=== PATIENT | male | born 1940 | race Caucasian/White ===

== ENCOUNTER 2017-12-26 00:27 | Inpatient (IN) ==
--- NOTE | 2017-12-26 03:28 | Internal Med History&Physical ---
Date of Encounter: 12/26/17 Time of Encounter: 03:24 Assessment and Plan (1) Femoral neck fracture Current visit: No Status: Acute Apparently the story was that he fell on ice NPO , IVF, IV fentanyl for pain ortho eval in the morning recheck labs, coag - xarelto effect may delay surgery - pending ortho recs Qualifiers: Encounter type: initial encounter Fracture type: closed Laterality: right Qualified Code(s): S72.001A - Fracture of unspecified part of neck of right femur, initial encounter for closed fracture (2) Venous thrombosis Current visit: Yes Status: Acute uncertain hx. on chronic anticoagulation . Took xarelto noon yesterday Will need to determine extent and dx to include whether he has clinically significant hypercoagulable disorder vs. regular VTE to further decide on per- operative prophylactic dosing vs. therapeutic heparinization. Will need to ask in the morning SCD for now (3) Cognitive and neurobehavioral dysfunction Current visit: Yes Status: Acute uncertain whether this is his baseline Possible dementia based on his non-specific poor recall and avoidance of questioning However, due to fall on xarelto, will send for non-contrast CT head to r/o any head bleed Internal Medicine - H&P: HPI Chief complaint: Fall History of present illness: Mr. Martin is a 77 year old male who presents with a fall and acute right hip fracture. He is a very poor historian and i wonder whether he has undiagnosed dementia. His is not available to assist in his story. Apparently, he reportedly fell on ice 2 days ago and had worsening pain along right hip associated with worsening ambulatory capacity. Right hip pain improved with pain medications given. Worse with movement. He presented to [facility] ED where work up confirmed right subcapital hip fracture. The case with discussed with Dr Herrera of ortho who has accepted him In terms of medical hx, he denies hx of heart disease but noted HTN. He admits to taking xarelto for hx of blood clots in his legs - he was unable to provide me with further details - it appeared that he might have been on coumadin prior but was later switched to xarelto for failure ??? I suspect he his some form of cognitive impairment based on my interactions with him but no collateral was present to confirm that. EKG personally reviewed with rate 94, RBBB, NSR, no prior to compare against XR/XR femur RT IMPRESSION: Acute mildly impacted right subcapital hip fracture. XR/XR hip complete RT IMPRESSION: Acute mildly impacted right subcapital hip fracture. XR/XR chest 1V portable IMPRESSION: Left basilar opacity favors either atelectasis or scarring. Past Med Surg Social Fam HX - Past Medical History Medical history: cancer, DVT, dementia, hypertension Psychiatric history: no psych history - Past Surgical History Surgical History: cancer surgery - Social History Smoking Status: Never smoker Smokeless Tobacco Status: No Alcohol use: none Drug use: none Internal Medicine - H&P: Meds Rivaroxaban [Xarelto] 20 mg PO DAILY 12/25/17 [History] 3 Allergy/AdvReac Type Severity Reaction Status Date / Time Penicillins Allergy Hives Verified 12/25/17 23:11 All Systems PM: A 10-system review of systems was performed and is negative for pertinent findings except as documented above in the HPI. Review of systems: ROS 14 point review of systems reviewed as best as possible given presentation. Pertinent positive or negative as per HPI or otherwise reviewed as negative - Constitutional Vitals: Temp Pulse Resp BP Pulse Ox 98.4 F 93 16 137/86 95 12/26/17 02:43 12/26/17 02:43 12/26/17 02:43 12/26/17 02:43 12/26/17 02:43 Exam: General - Alert but with cognitive impairment noted Psych - Appropriate affect/speech. No agitation Eyes - CAMILLE. Eye lids intact. No scleral icterus Neuro - No gross peripheral or central neuro deficits with intact CN 2-12 exam Heart - Sinus. RRR. S1 and S2 present. No added HS/murmurs appreciated. No elevated JVD appreciated. Lung - Adequate air entry b/l, No crackles/wheezes appreciated GI - Soft, non-tender. No hepatosplenomegaly/ascites. BS+ - No CVA/suprapubic tenderness or palpable bladder distension Skin - Intact. No rash/petechiae/ecchymosis. Warm extremities MSK - Right hip pain. No significant hematoma noted.
[2017-12-26] MEDS ORDERED: Naloxone 0.4 MG/ML INJ IVP PRN (03:35)
[2017-12-26] MEDS ORDERED: *HR* FentaNYL (PF) 100 MCG/2 ML VIAL IVP PRN (03:38)
[2017-12-26] MEDS: Ringers Solution, Lactated 1,000 ML IVC SCH ×2 (04:29→14:47)
[2017-12-26 05:55] LABS: Hematocrit 44.3 % (37.5-50.1); Hemoglobin 14.8 g/dL (12.9-16.9); Immature Granulocytes % 0.4 % (0-4); Lymphocytes % 23.4 %; Mean Corpuscular HGB Conc 33.4 g/dL (31.6-35.5); Mean Corpuscular Hemoglobin 31.4 pg (28.0-33.3); Mean Corpuscular Volume 93.9 fL (83.0-100.0); Mean Platelet Volume 9.5 fL (9.4-12.4); Platelet Count 152 K/mcL (140-400); Red Blood Count 4.72 M/mcL (4.19-5.50); Red Cell Distribution Width 13.2 % (11.5-14.5); Segmented Neutrophils % 62.2 %
[2017-12-26 05:56] LABS: Basophils % 0.3 %; Eosinophils # 0.3 K/mcL (0.0-0.6); Eosinophils % 2.7 %; Lymphocytes # 2.4 K/mcL (0.6-4.6); Monocytes # 1.1 K/mcL (0.0-1.3); Neutrophils # 6.3 K/mcL (1.6-8.9)
[2017-12-26 06:00] LABS: INR 1.8; Prothrombin Time 19.2 Seconds (9.4-12.1)
[2017-12-26 06:02] LABS: Activated Partial Thrombo Time 38.5 Seconds (26.0-36.0)
[2017-12-26 06:13] LABS: Alanine Aminotransferase 28 Units/L (7-52); Albumin 3.8 g/dL (3.5-5.7); Albumin/Globulin Ratio 1.4 (1.1-2.2); Alkaline Phosphatase 97 Units/L (34-104); Aspartate Amino Transferase 26 Units/L (13-39); BUN/Creatinine Ratio 15 (6-26); Bilirubin,Total 1.1 mg/dL (0.3-1.0); Blood Urea Nitrogen 12 mg/dL (8-23); Calcium 8.8 mg/dL (8.6-10.3); Carbon Dioxide 23 mEq/L (23-29); Chloride 107 mEq/L (98-107); Globulin 2.8 g/dL (2.4-3.5); Glucose 145 mg/dL (70-105); Osmolality,Calculated 288 (280-300); Potassium 3.8 mEq/L (3.5-5.1); Sodium 138 mEq/L (136-145); Total Protein 6.6 g/dL (6.4-8.9); eGFR For African Americans > 60 (> 60); eGFR For Non-African Americans > 60 (> 60)
--- NOTE | 2017-12-26 15:04 | Event Note ---
Date of Encounter: 12/26/17 Time of Encounter: 09:45 Patient lying in bed. Appears comfortable. Complains of pain in right hip region. Reviewed labs and previous records. INR is 1.8. Improved. Patient is medically stable for surgery at this time with intermediate risk for complications. He is on Xarelto for prior DVT. May resume after surgery.
--- NOTE | 2017-12-26 15:04 | Orthopedic Consult Note ---
Date of Encounter: 12/26/17 Time of Encounter: 07:00 Assessment and Plan (1) Femoral neck fracture Current Visit: No Status: Acute The diagnosis and treatment plan were discussed with the patient and family. Due to the fact that he has a nondisplaced femoral neck fracture we did recommend surgical management with a percutaneous pinning of the right hip. Medical management clearance will be today. He is also relative so we will hold that today and plan for surgery tomorrow in the a.m. My partner Dr. Dill will be performing this tomorrow morning and will discuss with the patient's family. Qualifiers: Encounter type: initial encounter Fracture type: closed Laterality: right Qualified Code(s): S72.001A - Fracture of unspecified part of neck of right femur, initial encounter for closed fracture History of Present Illness HPI: Mr. Martin is a 77 year old male who had a fall onto the right hip last night. History of present illness is limited by the patient's mental status. Per the chart he complained of right hip pain when he is brought to the emergency department. X-rays revealed a nondisplaced right femoral neck fracture. He was then transferred for further definitive management. No known cardiac events or passing out or blacking out prior to the fall. Past Med Surg Social Fam HX - Past Medical History Medical history: cancer, DVT, dementia, hypertension Psychiatric history: no psych history - Past Surgical History Surgical History: cancer surgery - Social History Smoking Status: Never smoker Smokeless Tobacco Status: No Alcohol use: none Drug use: none Medications and Allergies Rivaroxaban [Xarelto] 20 mg PO DAILY 12/25/17 [History] 3 Allergy/AdvReac Type Severity Reaction Status Date / Time Penicillins Allergy Hives Verified 12/25/17 23:11 All Systems Reviewed: A 10-system review of systems was performed and is negative for pertinent findings except as documented above in the HPI. Physical Exam - Constitutional Vitals: Temp Pulse Resp BP Pulse Ox 98.0 F 57 17 122/70 97 12/26/17 11:38 12/26/17 11:38 12/26/17 11:38 12/26/17 11:38 12/26/17 11:38 General appearance IM: A&O X 1 Exam: Consult Exam: Constitutional -Vitals reviewed -The patient is well developed and well nourished. Psychiatric -Underlying dementia. Respiratory: -Respiratory effort normal Abdomen: -Soft abdomen -Non tender -Non distended: Left upper extremity: -No deformities. The overlying skin is intact. No obvious signs of acute trauma. -No tenderness to palpation throughout. -No significant pain with passive motion of the shoulder, elbow, wrist, and fingers within the limits of the bed. -Able to make an "OK" sign, cross the index and long fingers, and extend the thumb. -Sensation grossly intact to light touch throughout the median, radial, and ulnar distributions. -Radial pulse is present; Fingers have good capillary refill. Right upper extremity: -No deformities. The overlying skin is intact. No obvious signs of acute trauma. -No tenderness to palpation throughout. -No significant pain with passive motion of the shoulder, elbow, wrist, and fingers within the limits of the bed. -Able to make an "OK" sign, cross the index and long fingers, and extend the thumb. -Sensation grossly intact to light touch throughout the median, radial, and ulnar distributions. -Radial pulse is present; Fingers have good capillary refill. Left lower extremity: -No deformities. The overlying skin is intact. No obvious signs of acute trauma. -No tenderness to palpation throughout. -No pain with passive motion of the hip, knee, ankle, and toes within the limits of the bed. -No pain with axial loading of the thigh. -Able to dorsiflex and plantarflex the ankle and toes. -Sensation is grossly intact to light touch throughout the sural, saphenous, superficial peroneal, and deep peroneal distributions. -Toes have good capillary refill. Right lower extremity: +Log roll/IR +pain with axial loading -Able to dorsiflex and plantarflex the ankle and toes. -Sensation is grossly intact to light touch throughout the sural, saphenous, superficial peroneal, and deep peroneal distributions. -Toes have good capillary refill. Results - Labs Result Diagrams: 12/26/17 05:38 12/26/17 05:38 Labs: Abnormal lab results PT 19.2 Seconds (9.4-12.1) H 12/26/17 05:38 APTT 38.5 Seconds (26.0-36.0) H 12/26/17 05:38 Glucose 145 mg/dL (70-105) H 12/26/17 05:38 Total Bilirubin 1.1 mg/dL (0.3-1.0) H 12/26/17 05:38 H & H 12/26/17 Range/Units 05:38 Hgb 14.8 (12.9-16.9) g/dL Hct 44.3 (37.5-50.1) % All other labs normal. - Diagnostic results Hip x-ray: report reviewed, image reviewed (non displaced R femoral neck fracture) Consult Discharge Plan - Plan Referrals: Ellie Bolivar, [employer] [Primary Care Provider] -
--- NOTE | 2017-12-26 17:05 | Orthopedics Progress Note ---
Date of Encounter: 12/26/17 Time of Encounter: 17:03 Subjective Interval history: I reviewed the case with my partner Dr. Herrera. I have seen and evaluated the patient. He is a 77-year-old male who was transferred to our facility after a fall that resulted in a right transcervical femoral neck fracture. He initially refused going to the emergency department and was able to ambulate with his 's walker. The patient is ordinarily an unassisted walker. The patient's pain worsened throughout the day and the following morning he was brought to the emergency department and transferred here for definitive management after the fracture was identified. The patient complains of only mild pain localized to the right hip and groin as of now. He denies any other injuries. On exam there is no deformity. Mild tenderness in the groin and mild pain with logroll of the right hip. He can dorsiflex and plantarflex the bilateral ankles and toes. Feet are grossly sensate and well- perfused. X-ray shows a nondisplaced transcervical femoral neck fracture. I did discuss treatment options and my recommendation was for percutaneous screw stabilization to reduce the risk of displacement. The risks discussed included but were not limited to stiffness, bleeding, infection, blood clots, damage to neurovascular structures, tendons, ligaments, and bone. Also discussed was the risk of continued symptoms and possible need for further procedures. I did discuss the anesthesia risks including stroke, heart attack, and . I did discuss the reasonable, foreseeable postoperative course with the patient as well as his . They did wish to proceed and consent will be obtained. Objective Vital signs: Vital Signs Temp Pulse Resp BP Pulse Ox 12/26/17 16:16 98.2 F 73 16 131/81 94 12/26/17 11:38 98.0 F 57 17 122/70 97 12/26/17 07:47 97.2 F L 82 16 126/74 95 12/26/17 02:43 98.4 F 93 16 137/86 95 Intake and Output 12/26/17 12/26/17 12/26/17 07:59 15:59 23:59 Intake Total 1000 / 1000 Output Total 400 / 400 500 / 500 Balance -400 / -400 500 / 500 Intake: IV Fluids 1000 / 1000 Lactated Ringers 1,000 ML @ 100 1000 / 1000 mls/hr IVC .Q10H CHYNA Rx#: [id number] Output: Urine 400 / 400 500 / 500 Other: Meal NPO Weight 75.3 kg Patient Weight 12/26/17 23:59 Weight 75.3 kg - Labs CBC & BMP: 12/26/17 05:38 12/26/17 05:38 Labs: Abnormal lab results PT 19.2 Seconds (9.4-12.1) H 12/26/17 05:38 APTT 38.5 Seconds (26.0-36.0) H 12/26/17 05:38 Glucose 145 mg/dL (70-105) H 12/26/17 05:38 Total Bilirubin 1.1 mg/dL (0.3-1.0) H 12/26/17 05:38 - VTE Documentation of Mechanical Device: Intermittent pneumatic compression device Consult Discharge Plan - Plan Referrals: Ellie Bolivar, [employer] [Primary Care Provider] -
[2017-12-26] MEDS: Acetaminophen 325 MG TABLET PO PRN (21:32)
--- NOTE | 2017-12-27 07:30 | Anesthesia Evaluation PreOp ---
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) Other Medical History: Denies Any Significant HX Anesthesia History: No Prior Anesthetic Complications Alcohol Use: none Drug use: none Medications and Allergies Rivaroxaban [Xarelto] 20 mg PO DAILY 12/25/17 [History] 3 Allergy/AdvReac Type Severity Reaction Status Date / Time Penicillins Allergy Hives Verified 12/25/17 23:11 - Meds/Allergy Pre-op Review Medications Reviewed: Yes Allergies Reviewed: Yes Beta Blockers on Current Med List: No Anesthesia Results - Labs 12/26/17 05:38 12/26/17 05:38 - Imaging EKG: report reviewed (SR Rt BBB) Anesthesia Exam Vital Signs/O2 Sat/Glucose, Most Current Temp Pulse Resp BP Pulse Ox 12/27/17 07:10 97.6 F 66 14 112/71 94 12/27/17 04:18 97.4 F L 69 16 148/75 95 Height: 5'6 Weight: 166 lbs NPO (# of Hours): MN Pain Scale: 0 - HEENT Pupil (Motor): Pupils equal, EOMI Mallampati: III Oral Opening: Greater than 3 - BINDING BENCH WORKER LOC: Unable to assess BINDING BENCH WORKER Motor: Normal RUE, Normal LUE, Normal RLE, Normal LLE, Normal Face BINDING BENCH WORKER Sensory: Normal: RUE, LUE, RLE, LLE, Face - Cardiac Rhythm: Regular Murmur: None JVD: No Carotid Bruit: No - Pulmonary Breath Sounds: bilateral Clear Respiratory Effort: Symmetrical Anesthesia Assess/Plan ASA Score: 3 (Dementia HTN) Modified [place] Scale for Level of Consciousness: Cooperative, oriented, and tranquil Anesthetic Plan: General Monitoring Plan: Standard Monitors Recovery Plan: PACU (Discussed GA, agrees to proceed)
--- NOTE | 2017-12-27 07:42 | Anesthesia Evaluation PreOp ---
Date of Encounter: 12/27/17 Time of Encounter: 07:55 - Past History Planned Operation: Rt H Alcohol Use: none Drug use: none Medications and Allergies Rivaroxaban [Xarelto] 20 mg PO DAILY 12/25/17 [History] 3 Allergy/AdvReac Type Severity Reaction Status Date / Time Penicillins Allergy Hives Verified 12/25/17 23:11 Anesthesia Results - Labs 12/26/17 05:38 12/26/17 05:38
[2017-12-27] MEDS ORDERED: Famotidine 20 MG/2 ML VIAL ONE (09:52)
[2017-12-27] MEDS ORDERED: Acetaminophen IV 1,000 MG/100 ML INFUS..BTL ONE (09:52)
[2017-12-27] MEDS ORDERED: *HR* FentaNYL (PF) 100 MCG/2 ML VIAL ONE ×2 (09:56→10:31)
[2017-12-27] MEDS ORDERED: *HR* Propofol 200 MG/20 ML VIAL IVP ONE (09:56)
[2017-12-27] MEDS ORDERED: *HR* Succinylcholine 200 MG/10 ML VIAL IVP ONE (09:57)
[2017-12-27] MEDS ORDERED: Lidocaine -MPF 2% 2 ML VIAL ONE (09:57)
[2017-12-27] MEDS ORDERED: Lidocaine -MPF 4% 5 ML AMPUL ONE (09:57)
[2017-12-27] MEDS ORDERED: Ondansetron 4 MG/2 ML VIAL ONE (09:57)
[2017-12-27] MEDS ORDERED: Clindamycin 900 MG/50 ML 900 MG/50 ML IV.SOLN IVPB ONE ×2 (10:05→10:36)
[2017-12-27] MEDS ORDERED: EPHEDrine 50 MG/ML VIAL ONE (10:28)
[2017-12-27] MEDS ORDERED: Ketorolac 30 MG/ML VIAL ONE (10:46)
[2017-12-27] MEDS ORDERED: Dexamethasone 4 MG/ML VIAL ONE (10:46)
--- NOTE | 2017-12-27 11:29 | Orthopedic Operative Note ---
Date of procedure: 12/27/17 Procedure: OPERATIVE REPORT DATE OF PROCEDURE: 12/27/2017 SURGEON: Chandler Leon MD LIGHTING DIRECTOR(S): There were no assistants PREOPERATIVE DIAGNOSIS: Right transcervical femoral neck fracture POSTOPERATIVE DIAGNOSIS: Same PROCEDURE: Percutaneous screw fixation of the right hip ANESTHESIA: General anesthesia PREOPERATIVE ANTIBIOTIC: 900 milligrams of clindamycin ESTIMATED BLOOD LOSS: 20 milliliters IMPLANTS: Fadia 6.5 mm partially threaded short thread cancellus screws LOCAL INJECTION: None PREOPERATIVE NOTE AND INDICATIONS: This patient is a 77-year-old male who sustained an injury leading to a nondisplaced right femoral neck fracture. The recommendation was for percutaneous pin fixation to stabilize the hip and reduce the risk of displacement. The surgical plan was discussed with the patient. The risks, benefits, alternatives, and potential complications of this procedure were discussed with the patient including injury to veins, arteries, nerves, tendons, ligaments, and bone. Also discussed were the risks of infection, bleeding, pain, blood clots, the possible need for a blood transfusion, the possible need for further procedures, heart attack, stroke, and . Additional risks include malunion , nonunion, avascular necrosis, and the need for prosthetic replacement. All of this was explained in simple terms, and the patient verbalized understanding and wished to proceed. Consent was given to proceed with surgery. PROCEDURE: The patient was seen in the preoperative holding area where the identify and the consent were confirmed. The right hip was marked. Final questions were answered. The patient was brought back to the operating room and placed supine on the operating room table. A huddle was performed with the patient and all vital surgical team members confirming patient identity, the correct procedure, and the correct operative site. General anesthesia was administered. Right lower extremity was placed in the traction boot without traction. The left lower extremity is flexed and abducted out of the way. The right lower extremity was prepped and draped in the usual sterile fashion. A surgical time out was performed immediately preceding the incision with all personnel in the operating room to confirm patient identity, the correct operative site and extremity, correct radiographic studies, availability of appropriate surgical equipment, and agreement on the planned procedure. Small longitudinal incision was made over the lateral thigh and dissection proceeded through the subcutaneous tissue. An incision was made through the fascia. 3 K wires were placed on the bone and driven into the femoral head. X- rays confirmed good position. There are measured, drilled, and the appropriately measured partially threaded cancellous screw was placed into the proximal femur, all 3 with excellent purchase. X-rays confirmed good position. The wound is copiously irrigated and the fascia was closed with 0 Vicryl stitches. The skin was closed with 3-0 Vicryl and a zipline device. A sterile dressing was applied. The instrument, sponge, and needle counts were correct after wound closure. POST OPERATIVE PLAN: Weight Bearing: Weightbearing as tolerated to the right lower extremity. DVT Prophylaxis: Home Xarelto Activity: As tolerated with the assistance of therapy Wound Care: . The dressing clean, dry, and intact Pain Control: Per the hospitalist Perioperative antibiotic prophylaxis: 2 doses of clindamycin Social work for discharge planning Follow Up: 2 weeks Was there an print shop assistant present: No Estimated blood loss (cc): 20
--- NOTE | 2017-12-27 12:38 | Anesthesia Evaluation Post Op ---
Date of Encounter: 12/27/17 Time of Encounter: 11:40 - Vital Signs Vital Signs: Vital Signs/O2 Sat/Glucose, Most Current Temp Pulse Resp BP Pulse Ox 12/27/17 11:51 97.1 F L 90 14 132/74 100 12/27/17 11:43 97.6 F 87 14 126/74 99 12/27/17 11:33 84 14 132/78 99 12/27/17 11:23 83 12 119/72 93 12/27/17 11:13 97.1 F L 84 12 117/69 96 - Lungs Lungs: Clear Ascult./Percussion - Airway Airway: Non-obstructed - Cardiovascular Regular Rate - Mental Status Mental Status: Alert & Oriented, Answers Appropriately - Pain Pain Scale: 0 - Nausea Vomiting Nausea Vomiting: Not Present - Hydration Hydration: NPO - Discharge PostOp Status: Transfer Patient to floor
--- NOTE | 2017-12-27 17:02 | Internal Med Progress Note ---
Date of Encounter: 12/27/17 Time of Encounter: 09:15 - Assessment and plan (1) Fracture of femoral neck, right, closed Current Visit: Yes Status: Acute Assessment and plan: Planned surgery later today. We will begin PT OT after that. Orthopedics managing. Qualifiers: Encounter type: initial encounter Qualified Code(s): S72.001A - Fracture of unspecified part of neck of right femur, initial encounter for closed fracture (2) Dementia Current Visit: Yes Status: Suspected Assessment and plan: Patient does appear to have underlying dementia. Has trouble with recall and is intermittently disoriented. He remains at risk of delirium and agitation. Will treat symptomatically. Qualifiers: Dementia type: unspecified type Dementia behavioral disturbance: with behavioral disturbance Qualified Code(s): F03.91 - Unspecified dementia with behavioral disturbance (3) Venous thrombosis Current Visit: Yes Status: Acute Assessment and plan: Resume Xarelto after surgery. - Subjective Interval history: Patient is awake and alert. He has been disoriented intermittently and did pull out his peripheral venous catheters yesterday. He now has a sitter at bedside. Surgery scheduled for later today. Pain in his right hip present but controlled. - Constitutional Vitals: Temp Pulse Resp BP Pulse Ox 98.5 F 81 16 133/72 96 12/27/17 15:29 12/27/17 15:29 12/27/17 15:29 12/27/17 15:29 12/27/17 15:29 General appearance: Present: cooperative, A&O X 2, mild distress, answers questions appropriately - Respiratory Respiratory exam: Present: CTAB. Absent: accessory muscle use, rales, rhonchi, wheezes - Cardiovascular Cardiovascular exam: Present: RRR, +S1, +S2. Absent: diastolic murmur, gallop, rubs, systolic murmur - GI/Abdominal GI/Abdominal exam: Present: normal bowel sounds, soft, no peritoneal signs. Absent: distended, tenderness - Extremities Exam Extremities exam: Present: tenderness (Right hip), warm, radial pulses palpable and symmetrical. Absent: calf tenderness, cyanotic, pedal edema - Neurological Exam Neurological exam: Present: alert, CN II-XII intact, no focal deficits. Absent : facial droop, speech deficit - Skin Skin exam: Present: dry, intact Internal Medicine: Result - Labs CBC & Chem 7: 12/26/17 05:38 12/26/17 05:38 - ABG Interpretation ABG results: PT/INR, D-dimer PT 19.2 Seconds (9.4-12.1) H 12/26/17 05:38 - Impressions Impressions Fluoroscopy 12/27/17 00:00 IMPRESSION: Intraprocedural fluoroscopic spot images as above. See separate procedure report for more information. D/ / 12/27/2017 12:38:45 Molly De Santiago MD / bal Interpreting Provider: Molly De Santiago MD Hip X-Ray 12/27/17 00:00 IMPRESSION: Intraprocedural fluoroscopic spot images as above. See separate procedure report for more information. D/ / 12/27/2017 12:38:45 Molly De Santiago MD / bal Interpreting Provider: Molly De Santiago MD Hip X-Ray 12/27/17 08:39 IMPRESSION: Closed slightly impacted nondisplaced right femoral neck fracture. D/ / 12/27/2017 10:59:58 Matthew Oakes MD / иван Interpreting Provider: Matthew Oakes MD - VTE Documentation of Mechanical Device: Intermittent pneumatic compression device Consult Discharge Plan - Plan Referrals: Ellie Bolivar, [employer] [Primary Care Provider] -
[2017-12-27] MEDS: *HR* Rivaroxaban 10 MG TABLET PO SCH (17:33)
[2017-12-27] MEDS: Clindamycin 900 MG/50 ML 900 MG/50 ML IV.SOLN IVPB SCH (17:33)
[2017-12-28] MEDS: Clindamycin 900 MG/50 ML 900 MG/50 ML IV.SOLN IVPB SCH (01:56)
[2017-12-28 04:25] LABS: Hematocrit 39.7 % (37.5-50.1); Hemoglobin 13.7 g/dL (12.9-16.9)
[2017-12-28 05:09] LABS: BUN/Creatinine Ratio 21 (6-26); Blood Urea Nitrogen 18 mg/dL (8-23); Calcium 8.9 mg/dL (8.6-10.3); Carbon Dioxide 23 mEq/L (23-29); Chloride 107 mEq/L (98-107); Glucose 116 mg/dL (70-105); Osmolality,Calculated 293 (280-300); Potassium 3.8 mEq/L (3.5-5.1); Sodium 140 mEq/L (136-145); eGFR For African Americans > 60 (> 60); eGFR For Non-African Americans > 60 (> 60)
--- NOTE | 2017-12-28 08:46 | Orthopedics Progress Note ---
Date of Encounter: 12/28/17 Time of Encounter: 08:43 Subjective Interval history: S: Resting in bed comfortably Pain well-controlled to the right hip Feels better than preoperatively O: Afebrile and vital signs are stable Right hip dressing is clean, dry, and intact I can gently passively range the right hip without significant pain He can dorsiflex and plantarflex the ankle and toes The foot is sensate and well-perfused A: Post percutaneous pinning of the right hip, doing very well P: Pal out today Weightbearing as tolerated on the bilateral lower extremities Therapy Xarelto for DVT prophylaxis Objective Vital signs: Vital Signs Temp Pulse Resp BP Pulse Ox 12/28/17 08:30 96 12/28/17 06:26 97.6 F 71 16 123/66 96 12/28/17 04:06 98.1 F 78 17 129/77 95 12/27/17 23:50 97.9 F 82 19 101/61 92 12/27/17 18:20 97.8 F 96 18 144/79 96 12/27/17 15:29 98.5 F 81 16 133/72 96 12/27/17 14:34 79 15 125/71 96 12/27/17 14:00 98.7 F 80 15 113/68 96 12/27/17 13:29 98.2 F 79 15 125/71 96 12/27/17 12:30 98.3 F 73 15 121/77 98 12/27/17 11:51 97.1 F L 90 14 132/74 100 12/27/17 11:43 97.6 F 87 14 126/74 99 12/27/17 11:33 84 14 132/78 99 12/27/17 11:23 83 12 119/72 93 12/27/17 11:13 97.1 F L 84 12 117/69 96 Intake and Output 12/27/17 12/28/17 12/28/17 23:59 07:59 15:59 Intake Total 50 / 50 600 / 600 Output Total 1475 / 1475 Balance -1425 / -1425 600 / 600 Intake: IV Fluids 50 / 50 Cleocin Premix 900 MG/50 ML 900 50 / 50 mg In 50 ml @ 50 mls/hr IVPB Q8H [facility] Rx#:[id number] Oral 600 / 600 Output: Urine 1475 / 1475 Other: # Voids 1 - Labs CBC & BMP: 12/28/17 03:17 12/28/17 03:17 Labs: Abnormal lab results PT 19.2 Seconds (9.4-12.1) H 12/26/17 05:38 APTT 38.5 Seconds (26.0-36.0) H 12/26/17 05:38 Glucose 116 mg/dL (70-105) H 12/28/17 03:17 POC Glucose 160 (58-89) H 12/27/17 16:42 Total Bilirubin 1.1 mg/dL (0.3-1.0) H 12/26/17 05:38 - VTE Documentation of Mechanical Device: Intermittent pneumatic compression device Consult Discharge Plan - Plan Additional Instructions: [facility] DISCHARGE INSTRUCTIONS Dr. Leon PROCEDURE PERFORMED Reduction and fixation of right hip. Incision care -Keep the dressing clean, dry, and intact for 2 weeks -Avoid soaking wound in water (no hot tubs, bathtubs, swimming pools). -May shower after 2 weeks from surgery date. Carefully wash incision with soap and water. Gently pat it dry. Don't rub the incision, or apply creams or lotions. Sit on a shower stool when showering to keep from falling. Weight bearing status -Weightbearing as tolerated to the bilateral lower extremities. Medications -Pain medication per the discharging medical doctor -Resume home dose of Xarelto Other -Knee high KETAN hose 23 hours per day -Consult physical and occupational therapy for mobilization. -Up to chair with assistance at least twice per day. -Follow up with your primary care physician to discuss testing for bone mineral density. Follow-up with Dr. Leon at the office 2 weeks from the surgery date for a post operative evaluation. Call the office at [phone] to schedule appointment. Referrals: Ellie Bolivar, MEDICAL BILLING ASSISTANT [Primary Care Provider] -
[2017-12-28] MEDS: Acetaminophen 325 MG TABLET PO PRN ×2 (12:45→18:49)
--- NOTE | 2017-12-28 14:33 | Internal Med Progress Note ---
Date of Encounter: 12/28/17 Time of Encounter: 09:00 - Assessment and plan (1) Fracture of femoral neck, right, closed Current Visit: Yes Status: Acute Assessment and plan: Status post percutaneous screw fixation of the right hip. Continue physical therapy. Recommended increased placement to inpatient rehabilitation. We will consult licensed clinical social worker to make necessary arrangements. Continue supportive care and pain control. Qualifiers: Encounter type: initial encounter Qualified Code(s): S72.001A - Fracture of unspecified part of neck of right femur, initial encounter for closed fracture (2) Dementia Current Visit: Yes Status: Suspected Assessment and plan: No new episodes of delirium. Minimize environmental stimuli. Follow up outpatient. Qualifiers: Dementia type: unspecified type Dementia behavioral disturbance: with behavioral disturbance Qualified Code(s): F03.91 - Unspecified dementia with behavioral disturbance (3) Venous thrombosis Current Visit: Yes Status: Acute Assessment and plan: Continue anticoagulation with Xarelto - Subjective Interval history: Patient is doing well. Working with physical therapy at this time. Underwent surgery yesterday with no complications. Patient is well controlled. - Constitutional Vitals: Temp Pulse Resp BP Pulse Ox 97.6 F 71 16 123/66 96 12/28/17 06:26 12/28/17 06:26 12/28/17 06:26 12/28/17 06:26 12/28/17 12:58 General appearance: Present: cooperative, A&O X 2, mild distress, answers questions appropriately - Respiratory Respiratory exam: Present: CTAB. Absent: accessory muscle use, rales, rhonchi, wheezes - Cardiovascular Cardiovascular exam: Present: RRR, +S1, +S2. Absent: diastolic murmur, gallop, rubs, systolic murmur - Extremities Exam Extremities exam: Present: warm, radial pulses palpable and symmetrical. Absent : calf tenderness, cyanotic, pedal edema - Neurological Exam Neurological exam: Present: CN II-XII intact, oriented X3, no focal deficits. Absent: facial droop, speech deficit Internal Medicine: Result - Labs CBC & Chem 7: 12/28/17 03:17 12/28/17 03:17 Labs: Short CBC 12/28/17 Range/Units 03:17 Hgb 13.7 (12.9-16.9) g/dL Hct 39.7 (37.5-50.1) % BMP 12/28/17 03:17 Sodium 140 Potassium 3.8 Chloride 107 Carbon Dioxide 23 BUN 18 Creatinine 0.87 Glucose 116 H Calcium 8.9 - ABG Interpretation ABG results: PT/INR, D-dimer PT 19.2 Seconds (9.4-12.1) H 12/26/17 05:38 - VTE Documentation of Mechanical Device: Intermittent pneumatic compression device Consult Discharge Plan - Plan Additional Instructions: LONG TERM DISCHARGE INSTRUCTIONS Dr. Leon PROCEDURE PERFORMED Reduction and fixation of right hip. Incision care -Keep the dressing clean, dry, and intact for 2 weeks -Avoid soaking wound in water (no hot tubs, bathtubs, swimming pools). -May shower after 2 weeks from surgery date. Carefully wash incision with soap and water. Gently pat it dry. Don't rub the incision, or apply creams or lotions. Sit on a shower stool when showering to keep from falling. Weight bearing status -Weightbearing as tolerated to the bilateral lower extremities. Medications -Pain medication per the discharging medical doctor -Resume home dose of Xarelto Other -Knee high KETAN hose 23 hours per day -Consult physical and occupational therapy for mobilization. -Up to chair with assistance at least twice per day. -Follow up with your primary care physician to discuss testing for bone mineral density. Follow-up with Dr. Leon at the office 2 weeks from the surgery date for a post operative evaluation. Call the office at [phone] to schedule appointment. Referrals: Ellie Bolivar LABEL PRINTING MACHINIST [Primary Care Provider] -
[2017-12-28] MEDS: *HR* Rivaroxaban 10 MG TABLET PO SCH (15:28)
[2017-12-29 07:37] LABS: Hemoglobin 14.8 g/dL (12.9-16.9)
--- NOTE | 2017-12-29 08:21 | Orthopedics Progress Note ---
Date of Encounter: 12/29/17 Time of Encounter: 08:20 Subjective Interval history: S: Resting in bed comfortably Pain well-controlled to the right hip Feels better than preoperatively O: Afebrile and vital signs are stable Right hip dressing is clean, dry, and intact I can gently passively range the right hip without significant pain He can dorsiflex and plantarflex the ankle and toes The foot is sensate and well-perfused A: Post percutaneous pinning of the right hip, doing very well P: Weightbearing as tolerated on the bilateral lower extremities Therapy Xarelto for DVT prophylaxis Orthopedically stable for discharge Objective Vital signs: Vital Signs Temp Pulse Resp BP Pulse Ox 12/29/17 06:56 99.1 F 71 17 130/84 92 12/29/17 03:18 98.6 F 72 18 138/82 93 12/28/17 23:12 98.2 F 62 18 123/75 93 12/28/17 19:03 98.2 F 75 18 137/72 94 12/28/17 14:00 97.9 F 78 16 128/64 95 12/28/17 12:58 96 12/28/17 08:30 96 Intake and Output 12/28/17 12/29/17 12/29/17 23:59 07:59 15:59 Intake Total 240 / 240 1600 / 1600 Output Total 1750 / 1750 1250 / 1250 Balance -1510 / -1510 350 / 350 Intake: Oral 240 / 240 1600 / 1600 Output: Urine 1750 / 1750 1250 / 1250 Other: Meal Dinner Percent of Meal Consumed 100% - Labs CBC & BMP: 12/29/17 06:32 12/28/17 03:17 Labs: Abnormal lab results PT 19.2 Seconds (9.4-12.1) H 12/26/17 05:38 APTT 38.5 Seconds (26.0-36.0) H 12/26/17 05:38 Glucose 116 mg/dL (70-105) H 12/28/17 03:17 POC Glucose 160 (58-89) H 12/27/17 16:42 Total Bilirubin 1.1 mg/dL (0.3-1.0) H 12/26/17 05:38 - VTE Documentation of Mechanical Device: Intermittent pneumatic compression device Consult Discharge Plan - Plan Additional Instructions: [facility] DISCHARGE INSTRUCTIONS Dr. Leon PROCEDURE PERFORMED Reduction and fixation of right hip. Incision care -Keep the dressing clean, dry, and intact for 2 weeks -Avoid soaking wound in water (no hot tubs, bathtubs, swimming pools). -May shower after 2 weeks from surgery date. Carefully wash incision with soap and water. Gently pat it dry. Don't rub the incision, or apply creams or lotions. Sit on a shower stool when showering to keep from falling. Weight bearing status -Weightbearing as tolerated to the bilateral lower extremities. Medications -Pain medication per the discharging medical doctor -Resume home dose of Xarelto Other -Knee high KETAN hose 23 hours per day -Consult physical and occupational therapy for mobilization. -Up to chair with assistance at least twice per day. -Follow up with your primary care physician to discuss testing for bone mineral density. Follow-up with Dr. Leon at the office 2 weeks from the surgery date for a post operative evaluation. Call the office at [phone] to schedule appointment. Referrals: Ellie Bolivar HOME VISITS NURSE [Primary Care Provider] -
--- NOTE | 2017-12-29 13:07 | Discharge Summary ---
Date of Encounter: 12/29/17 Time of Encounter: 13:05 - Discharge Diagnosis (1) Fracture of femoral neck, right, closed Priority: Primary Status: Acute Qualifiers: Encounter type: initial encounter Qualified Code(s): S72.001A - Fracture of unspecified part of neck of right femur, initial encounter for closed fracture (2) Dementia Priority: Secondary Status: Suspected Qualifiers: Dementia type: unspecified type Dementia behavioral disturbance: with behavioral disturbance Qualified Code(s): F03.91 - Unspecified dementia with behavioral disturbance (3) Venous thrombosis Priority: Secondary Status: Acute - Discharge Medications Home Medications: Rivaroxaban [Xarelto] 20 mg PO DAILY 12/25/17 [History] Acetaminophen [Tylenol] 650 mg PO Q6HR PRN tablet 12/29/17 [Rx] Cyclobenzaprine [Flexeril] 5 mg PO TID PRN tablet 12/29/17 [Rx] Lidocaine Patch [Lidoderm 5% patch] 1 each TP DAILY adh..patch 12/29/17 [Rx] Allergies/Adverse Reactions: 3 Allergy/AdvReac Type Severity Reaction Status Date / Time Penicillins Allergy Hives Verified 12/25/17 23:11 Procedures/tests Complete & Pending: Procedures Performed prior 72 hours Category Date Time Status EV echocardiogram Routine Y 12/26/17 15:05 Completed Date of admission: 12/26/17 05:08 Primary care physician: Ellie Bolivar, Consults: 12/26/17 03:39 Consult to Orthopedic Surgery [CONS] Routine Consulting Provider: [facility] Reason for Consult: hip fracture Call Completed: Yes 12/27/17 11:15 Consult to Occupational Therapy [CONS] Routine Comment: Evaluate, develop and implement POC Reason for Consult: post hip surgery Consult to Orthopedic Navigator [CONS] [CONS] Routine Consult to Physical Therapy [CONS] Routine Comment: Evaluate, develop and implement POC Reason for Consult: post hip surgery Consult to Herbarium Worker [CONS] Routine Reason for SW Consult: post -op hip fracture RT Post Op Consult [CONS] Routine Discharging clinician: Elvira Chavez Anticipated date of discharge: 12/29/17 - Patient Status Disposition: Transfer Inpatient Rehab Fac Condition: Good Functional capacity at discharge: uses cane/walker Overall status at discharge: patient is progressing back to baseline - Discharge Instructions Follow Up With: Ellie Bolivar, DIAGNOSTICS TECH [Primary Care Provider] - (in 1-2 weeks) Chandler Leon MD [Partnered Physician] - (in 1-2 weeks) Additional Instructions: [facility] DISCHARGE INSTRUCTIONS Dr. Leon PROCEDURE PERFORMED Reduction and fixation of right hip. Incision care -Keep the dressing clean, dry, and intact for 2 weeks -Avoid soaking wound in water (no hot tubs, bathtubs, swimming pools). -May shower after 2 weeks from surgery date. Carefully wash incision with soap and water. Gently pat it dry. Don't rub the incision, or apply creams or lotions. Sit on a shower stool when showering to keep from falling. Weight bearing status -Weightbearing as tolerated to the bilateral lower extremities. Medications -Pain medication per the discharging medical doctor -Resume home dose of Xarelto Other -Knee high KETAN hose 23 hours per day -Consult physical and occupational therapy for mobilization. -Up to chair with assistance at least twice per day. -Follow up with your primary care physician to discuss testing for bone mineral density. Follow-up with Dr. Leon at the office 2 weeks from the surgery date for a post operative evaluation. Call the office at [phone] to schedule appointment. - Diet and Activity Activity: as per physical therapy Diet: low fat, low cholesterol, low salt diet Hospital course: Mr. Martin is a 77 year old male patient who was hospitalized here after a fall resulting in right femur fracture. He was evaluated by orthopedics and underwent surgery with internal fixation. He has been receiving physical therapy here and has been recommended placement in inpatient rehabilitation. He will be discharged to inpatient rehabilitation once he has a bed available. 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 - Time Spent with Patient Total time spent providing and/or coordinating discharge services: Greater than 30 minutes (32 min) - Constitutional Vitals: Temp Pulse Resp BP Pulse Ox 97.9 F 65 16 125/74 95 12/29/17 11:09 12/29/17 11:09 12/29/17 11:09 12/29/17 11:12/29/17 11:09 General appearance: Present: cooperative, A&O X 2, no acute distress, answers questions appropriately - Respiratory Respiratory exam: Present: CTAB. Absent: accessory muscle use, rales, rhonchi, wheezes - Cardiovascular Cardiovascular exam: Present: RRR, +S1, +S2. Absent: diastolic murmur, gallop, rubs, systolic murmur - GI/Abdominal GI/Abdominal exam: Present: normal bowel sounds, soft, no peritoneal signs. Absent: distended, tenderness - Extremities Exam Extremities exam: Present: full ROM, warm, radial pulses palpable and symmetrical. Absent: calf tenderness, cyanotic, pedal edema - Neurological Exam Neurological exam: Present: CN II-XII intact, oriented X3, no focal deficits. Absent: pronater drift, facial droop, speech deficit - VTE Documentation of Mechanical Device: Intermittent pneumatic compression device
--- NOTE | 2017-12-29 13:17 | Physician Discharge Referral ---
ExtendedCare Referral Info Provider in Charge after Transfer: PCP Institutional Level of Care: Skilled - Diagnosis (1) Fracture of femoral neck, right, closed Priority: Primary Status: Acute (2) Dementia Priority: Secondary Status: Suspected (3) Venous thrombosis Priority: Secondary Status: Acute Prognosis: Good Aware of Diagnosis: Patient Aware of Prognosis: Patient - Transfer Medications Home Medications: Rivaroxaban [Xarelto] 20 mg PO DAILY 12/25/17 [History] Acetaminophen [Tylenol] 650 mg PO Q6HR PRN tablet 12/29/17 [Rx] Cyclobenzaprine [Flexeril] 5 mg PO TID PRN tablet 12/29/17 [Rx] Lidocaine Patch [Lidoderm 5% patch] 1 each TP DAILY adh..patch 12/29/17 [Rx] Allergies/Adverse Reactions: 3 Allergy/AdvReac Type Severity Reaction Status Date / Time Penicillins Allergy Hives Verified 12/25/17 23:11 - Respiratory Orders Smoking Cessation: Smoking cessation has been advised. For more information, call the [place] Tobacco Quit Line at 6-595-KLDF-NOW. - Ancillary Orders May consult with Dentist, Log Processor Operator, Emt B PRN - Advance Directives Code Status: Full Code - Mobility Orders Ambulate (with walker) - Rehabiliation Orders Rehab Potential: Fair Rehab Orders: Evaluation for Physical Therapy, Evaluation for Occupational Therapy - Diet Orders Cardiac CERTIFICATION: I certify that the transfer of the above named patient to an Extended Care Facility is necessary for the continuing treatment of the diagnosis listed. The above information is true and accurate reflection of patient's current condition. Confidential - Redisclosure prohibited without a patient's written consent.
[2017-12-29] MEDS: *HR* Rivaroxaban 10 MG TABLET PO SCH (17:33)
[2017-12-30 15:24] VITALS: BP 142/79
--- NOTE | 2017-12-30 17:57 | Physician Discharge Referral ---
Home Health/Hosp Referral Info Transfer to: Home Health - Diagnosis (1) Fracture of femoral neck, right, closed Priority: Primary Status: Acute (2) Dementia Priority: Secondary Status: Suspected - Respiratory Orders Smoking Cessation: Smoking cessation has been advised. For more information, call the [place] Tobacco Quit Line at 3-808-VGTS-NOW. - Services Needed Following services are medically necessary services: Nursing, Physical Therapy - Transfer Medications Home Medications: Rivaroxaban [Xarelto] 20 mg PO DAILY 12/25/17 [History] Acetaminophen [Tylenol] 650 mg PO Q6HR PRN tablet 12/29/17 [Rx] Cyclobenzaprine [Flexeril] 5 mg PO TID PRN tablet 12/29/17 [Rx] Lidocaine Patch [Lidoderm 5% patch] 1 each TP DAILY adh..patch 12/29/17 [Rx] Allergies/Adverse Reactions: 3 Allergy/AdvReac Type Severity Reaction Status Date / Time Penicillins Allergy Hives Verified 12/25/17 23:11 Certification: Further, I certify that my clinical findings support that this patient is homebound (i.e. absences from home require considerable and taxing effort and are for medical reasons or denominational services or infrequently or short duration when for other reasons) because: Homebound Reason: Patient requires assistance of a person or device to safely leave home Attestation: My signature below is to certify that this patient is under my care and that I, or nurse practitioner, or a physician's payroll administrative assistant working with me, has a face-to -face encounter with this patient.
--- NOTE | 2017-12-30 17:58 | Event Note ---
Date of Encounter: 12/30/17 Time of Encounter: 11:00 Patient awaiting set up for home health.
== END 2017-12-30 18:11 | DRG 481 ==
LOC: 3NENU → SUATTDRO 05:08
PROVIDERS: ADMIT Internal Medicine; ATTEND Hospitalist

== ENCOUNTER 2021-11-01 19:41 | Inpatient (IN) ==
[2021-11-01] MEDS ORDERED: Naloxone 0.4 MG/ML INJ IVP PRN (23:55)
[2021-11-01] MEDS ORDERED: Melatonin 3 MG TABLET PO PRN (23:55)
[2021-11-02 01:46] LABS: Basophils % 0.1 %; Hematocrit 50.8 % (37.5-50.1); Hemoglobin 17.5 g/dL (12.9-16.9); Immature Granulocytes % 0.4 % (0-4); Lymphocytes # 0.9 K/mcL (0.6-4.6); Lymphocytes % 12.4 %; Mean Corpuscular HGB Conc 34.4 g/dL (31.6-35.5); Mean Corpuscular Hemoglobin 32.6 pg (28.0-33.3); Mean Corpuscular Volume 94.6 fL (83.0-100.0); Monocytes # 0.3 K/mcL (0.0-1.3); Monocytes % 3.3 %; Neutrophils # 6.4 K/mcL (1.6-8.9); Platelet Count 171 K/mcL (140-400); Red Blood Count 5.37 M/mcL (4.19-5.50); Red Cell Distribution Width 13.1 % (11.5-14.5); Segmented Neutrophils % 83.8 %; White Blood Count 7.6 K/mcL (4.3-11.1)
[2021-11-02 02:01] LABS: C-Reactive Protein 36 mg/L (Less than 10); Magnesium 2.1 mg/dL (1.6-2.6)
[2021-11-02] MEDS ORDERED: Lidocaine 4% CREAM (LMX) 5 GM TP ONE (02:48)
[2021-11-02] MEDS: Ipratropium 1 PUFF INHALER IH SCH ×4 (03:41→20:25)
[2021-11-02] MEDS ORDERED: 0.9 % Sodium Chloride 1,000 ML IVC SCH (03:45)
[2021-11-02 04:57] LABS: BUN/Creatinine Ratio 23 (6-26); Blood Urea Nitrogen 18 mg/dL (8-23); Calcium 8.5 mg/dL (8.6-10.3); Carbon Dioxide 23 mEq/L (23-29); Chloride 103 mEq/L (98-107); Glucose 261 mg/dL (70-105); Osmolality,Calculated 299 (280-300); Potassium 3.9 mEq/L (3.5-5.1); Sodium 139 mEq/L (136-145); eGFR For African Americans > 60 (> 60); eGFR For Non-African Americans > 60 (> 60)
[2021-11-02] MEDS: *HR* Enoxaparin 80 MG/0.8 ML SYRINGE SQ SCH ×2 (05:13→18:06)
[2021-11-02] MEDS ORDERED: *HR* Enoxaparin 40 MG/0.4 ML SYRINGE SQ SCH (06:00)
[2021-11-02] MEDS ORDERED: *HR* LORazepam 2 MG/ML VIAL IVP ONE (18:37)
[2021-11-02] MEDS: traZODone 50 MG TABLET PO SCH (20:57)
[2021-11-03] MEDS: Ipratropium 1 PUFF INHALER IH SCH ×4 (04:01→21:10)
[2021-11-03] MEDS: *HR* Enoxaparin 80 MG/0.8 ML SYRINGE SQ SCH ×2 (05:09→17:38)
[2021-11-03] MEDS: Aspirin Enteric Coated 81 MG Tablet PO SCH (07:42)
[2021-11-03] MEDS ORDERED: Perflutren Lipid Microsphere 1.3 ML in 0.9 % Sodium Chloride 8.7 ML IVP PRN (08:02)
[2021-11-03 10:30] LABS: Basophils % 0.2 %; Hematocrit 50.4 % (37.5-50.1); Hemoglobin 17.1 g/dL (12.9-16.9); Immature Granulocytes % 0.5 % (0-4); Lymphocytes # 1.2 K/mcL (0.6-4.6); Lymphocytes % 10.4 %; Mean Corpuscular HGB Conc 33.9 g/dL (31.6-35.5); Mean Corpuscular Hemoglobin 32.5 pg (28.0-33.3); Mean Corpuscular Volume 95.8 fL (83.0-100.0); Mean Platelet Volume 10.1 fL (9.4-12.4); Monocytes # 0.6 K/mcL (0.0-1.3); Monocytes % 5.3 %; Neutrophils # 9.5 K/mcL (1.6-8.9); Platelet Count 220 K/mcL (140-400); Red Blood Count 5.26 M/mcL (4.19-5.50); Segmented Neutrophils % 83.6 %
[2021-11-03 10:37] LABS: White Blood Count 11.4 K/mcL (4.3-11.1)
[2021-11-03 10:41] LABS: Fibrinogen 354 mg/dL (169-393)
[2021-11-03 10:44] LABS: Alanine Aminotransferase 37 Units/L (7-52); Albumin 3.3 g/dL (3.5-5.7); Albumin/Globulin Ratio 0.9 (1.1-2.2); Alkaline Phosphatase 94 Units/L (34-104); Aspartate Amino Transferase 41 Units/L (13-39); BUN/Creatinine Ratio 33 (6-26); Bilirubin,Total 0.8 mg/dL (0.3-1.0); Blood Urea Nitrogen 26 mg/dL (8-23); Calcium 9.3 mg/dL (8.6-10.3); Carbon Dioxide 25 mEq/L (23-29); Chloride 108 mEq/L (98-107); Globulin 3.8 g/dL (2.4-3.5); Glucose 230 mg/dL (70-105); Lactate Dehydrogenase 296 Units/L (140-271); Osmolality,Calculated 308 (280-300); Potassium 3.8 mEq/L (3.5-5.1); Sodium 143 mEq/L (136-145); Total Protein 7.1 g/dL (6.4-8.9); eGFR For African Americans > 60 (> 60); eGFR For Non-African Americans > 60 (> 60)
[2021-11-03 11:01] LABS: Ferritin 751 ng/mL (20-250)
[2021-11-03 11:02] LABS: D-Dimer 650 ng/mLFEU (0-500)
[2021-11-03 13:32] LABS: C-Reactive Protein 18 mg/L (Less than 10)
[2021-11-03] MEDS: traZODone 50 MG TABLET PO SCH (19:59)
[2021-11-04] MEDS ORDERED: Haloperidol Lactate 5 MG/ML VIAL IVP ONE (00:02)
[2021-11-04] MEDS: Ipratropium 1 PUFF INHALER IH SCH ×4 (05:02→20:03)
[2021-11-04 05:21] LABS: Basophils % 0.1 %; Hematocrit 51.4 % (37.5-50.1); Hemoglobin 17.2 g/dL (12.9-16.9); Immature Granulocytes % 0.3 % (0-4); Lymphocytes # 1.5 K/mcL (0.6-4.6); Lymphocytes % 12.1 %; Mean Corpuscular HGB Conc 33.5 g/dL (31.6-35.5); Mean Corpuscular Hemoglobin 31.9 pg (28.0-33.3); Mean Corpuscular Volume 95.4 fL (83.0-100.0); Mean Platelet Volume 10.1 fL (9.4-12.4); Monocytes # 0.7 K/mcL (0.0-1.3); Monocytes % 5.9 %; Neutrophils # 9.9 K/mcL (1.6-8.9); Platelet Count 244 K/mcL (140-400); Red Blood Count 5.39 M/mcL (4.19-5.50); Red Cell Distribution Width 13.1 % (11.5-14.5); Segmented Neutrophils % 81.6 %; White Blood Count 12.1 K/mcL (4.3-11.1)
[2021-11-04] MEDS: *HR* Enoxaparin 80 MG/0.8 ML SYRINGE SQ SCH ×2 (05:29→16:48)
[2021-11-04 05:39] LABS: Alanine Aminotransferase 42 Units/L (7-52); Albumin 3.4 g/dL (3.5-5.7); Albumin/Globulin Ratio 0.8 (1.1-2.2); Alkaline Phosphatase 94 Units/L (34-104); Aspartate Amino Transferase 46 Units/L (13-39); BUN/Creatinine Ratio 38 (6-26); Bilirubin,Total 0.9 mg/dL (0.3-1.0); Blood Urea Nitrogen 28 mg/dL (8-23); Calcium 9.3 mg/dL (8.6-10.3); Carbon Dioxide 26 mEq/L (23-29); Chloride 111 mEq/L (98-107); Globulin 4.1 g/dL (2.4-3.5); Glucose 227 mg/dL (70-105); Osmolality,Calculated 317 (280-300); Potassium 3.8 mEq/L (3.5-5.1); Sodium 147 mEq/L (136-145); Total Protein 7.5 g/dL (6.4-8.9); eGFR For African Americans > 60 (> 60); eGFR For Non-African Americans > 60 (> 60)
[2021-11-04] MEDS ORDERED: Isovue-370 500 ML BOTTLE IVP ONE (07:40)
[2021-11-04] MEDS: Aspirin Enteric Coated 81 MG Tablet PO SCH (08:16)
[2021-11-04] MEDS: Thiamine (B-1) 100 MG in 0.9 % Sodium Chloride 50 ML IVPB SCH ×3 (08:16→20:41)
[2021-11-04 11:10] LABS: Folate 11.7 ng/mL (3.0-16.0)
[2021-11-04 11:12] LABS: Vitamin B12 > 1500 pg/mL (250-1100)
[2021-11-04] MEDS: 0.9 % Sodium Chloride 1,000 ML IVC SCH (12:20)
[2021-11-04] MEDS: Haloperidol Lactate 5 MG/ML VIAL IVP PRN (17:35)
[2021-11-04] MEDS: traZODone 50 MG TABLET PO SCH (20:02)
[2021-11-05] MEDS: Haloperidol Lactate 5 MG/ML VIAL IVP PRN ×4 (00:27→13:11)
[2021-11-05] MEDS: Ipratropium 1 PUFF INHALER IH SCH ×3 (04:16→15:52)
[2021-11-05] MEDS: *HR* Enoxaparin 80 MG/0.8 ML SYRINGE SQ SCH (06:27)
[2021-11-05] MEDS: 0.9 % Sodium Chloride 1,000 ML IVC SCH (09:48)
[2021-11-05] MEDS: Aspirin Enteric Coated 81 MG Tablet PO SCH (09:49)
[2021-11-05] MEDS ORDERED: Morphine Sulfate Oral CONC 10 MG/0.5 ML ORAL.SYG SL PRN ×3 (10:19→16:30)
[2021-11-05] MEDS: Thiamine (B-1) 100 MG in 0.9 % Sodium Chloride 50 ML IVPB SCH (11:18)
[2021-11-05] MEDS: Nystatin Cream 15 GM TUBE TP SCH ×2 (13:12)
[2021-11-05 15:27] VITALS: BP 167/87; PULSE 112; TEMP 98.4
[2021-11-05] MEDS ORDERED: Morphine Sulfate 2 MG/ML SYRINGE IVP PRN (16:29)
[2021-11-05 18:29] VITALS: O2SAT 89
== END 2021-11-05 16:58 | disposition hospice, inpatient (51) | DRG 177 ==
LOC: 2NENU → SUATTDRO 23:29 → OBSVTOIN 23:29 → 2ANU 11-05 06:11
PROVIDERS: ADMIT Internal Medicine; ATTEND Family Medicine

== ENCOUNTER 2021-11-05 16:44 | Inpatient (IN) ==
[2021-11-05] MEDS ORDERED: Bisacodyl 10 MG RECTAL SUPPOSITORY RC PRN (16:49)
[2021-11-05] MEDS ORDERED: Atropine 1% Opth Drops 100 DROP/5 ML BOTTLE SL PRN (16:49)
[2021-11-05] MEDS ORDERED: Scopolamine Patch 1.5 MG PATCH.TD72 TD SCH (17:00)
[2021-11-05] MEDS: Haloperidol Lactate 5 MG/ML VIAL IVP PRN (17:22)
[2021-11-05] MEDS: Morphine Sulfate Oral CONC 10 MG/0.5 ML ORAL.SYG PO PRN ×3 (17:23→23:53)
[2021-11-05] MEDS: Nystatin Cream 15 GM TUBE TP SCH (19:44)
[2021-11-06] MEDS: Morphine Sulfate Oral CONC 10 MG/0.5 ML ORAL.SYG PO PRN ×3 (01:50→08:01)
[2021-11-06] MEDS: Haloperidol Lactate 5 MG/ML VIAL IVP PRN ×2 (01:50→08:01)
[2021-11-06 06:54] VITALS: BP 152/86
[2021-11-06 06:57] VITALS: PULSE 116; O2SAT 87
[2021-11-06] MEDS: Nystatin Cream 15 GM TUBE TP SCH ×3 (07:55→23:10)
[2021-11-06] MEDS ORDERED: *HR* LORazepam 2 MG/ML VIAL IVP PRN ×2 (09:36→12:56)
[2021-11-06] MEDS: Morphine Sulfate 2 MG/ML SYRINGE IVP PRN ×4 (10:16→23:08)
[2021-11-06] MEDS ORDERED: FentaNYL (PF) 1,000 MCG/100 ML IV.SOLN IVC SCH (13:00)
[2021-11-06] MEDS ORDERED: Acetaminophen 650 MG RECTAL SUPP RC PRN (18:28)
[2021-11-06 18:30] VITALS: TEMP 102.6
[2021-11-07] MEDS: Morphine Sulfate 2 MG/ML SYRINGE IVP PRN (01:56)
== END 2021-11-07 02:07 | disposition expired | DRG 951 ==
LOC: 2ANU 17:02
PROVIDERS: ADMIT Internal Medicine Hospice and Palliative Medicine; ATTEND Internal Medicine Hospice and Palliative Medicine